=== PATIENT | male | born 1955 | race Native Hawaiian/Other Pacific Islander ===

== ENCOUNTER 2016-12-12 08:13 | Outpatient (CLI) | payer OTHER ==
[~2016-12-12 08:13] MED LIST: BAYER ASA325 M1 PO; HYDR25TA60 PO; LISI5TAB10 PO; METF500T PO; PREVACID30 M1 PO; SIMV40TA57 PO; STOOL SOFTNR100 M1 PO; TAMS0.4C PO; TIZA4TAB5 PO; TURMERIC500 M1 PO; VESICARE10 MG PO
[2016-12-12] MEDS ORDERED: HYDR25TA60 PO (09:38)
[2016-12-12] MEDS ORDERED: ALAVERT10 M2 PO (09:39)
[2016-12-12] MEDS ORDERED: GLIP10TA55 PO (09:39)
== END 2016-12-12 08:22 | disposition short-term general hospital (02) ==
LOC: AMB 08:13
DX: R50.9 Fever, unspecified (principal); R53.81 Other malaise; G82.20 Paraplegia, unspecified
CPT/HCPCS: A0425; A0427

== ENCOUNTER → 2017-11-27 21:25 | Outpatient (CLI) | payer OTHER ==
[~2017-11-27 21:25] MED LIST changes: +ALAVERT10 M2 PO; +FORTAMET1000 MG PO; +GLIP10TA55 PO; +LISI20TA11 PO; +SIMV10TA PO
== END | disposition short-term general hospital (02) ==
LOC: AMB 21:25
DX: I95.89 Other hypotension (principal); E66.8 Other obesity
CPT/HCPCS: A0425; A0429

== ENCOUNTER 2017-11-27 21:41 | Emergency (ER) | payer OTHER ==
[~2017-11-27] VITALS: Ht 182.9 cm; Wt 113.4 kg
[~2017-11-27 21:41] MED LIST changes: -FORTAMET1000 MG PO; -LISI20TA11 PO; -SIMV10TA PO
[2017-11-27] MEDS ORDERED: FORTAMET1000 MG PO (21:56)
[2017-11-27] MEDS ORDERED: TAMS0.4C PO (21:58)
[2017-11-27] MEDS ORDERED: SIMV10TA PO (21:59)
[2017-11-27] MEDS ORDERED: LISI20TA11 PO (22:00)
[2017-11-27] MEDS ORDERED: GLIP10TA55 PO (22:01)
[2017-11-27 22:24] LABS: PLATELET COUNT 190 K/uL (142-355)
[2017-11-27 22:34] LABS: POTASSIUM 4.1 mmol/L (3.6-5.2)
[2017-11-27 23:35] VITALS: BP 121/63; TEMP 98.1
== END 2017-11-27 23:37 | disposition home or self-care (01) ==
LOC: ED 21:41
PROC: 0T9B70Z Drainage of Bladder with Drainage Device, Via Natural or Artificial Opening (ICD-10-PCS; principal; 2017-11-27)
DX: E86.0 Dehydration (principal); I95.9 Hypotension, unspecified
CPT/HCPCS: 36415; 51702; 80053; 81000; 83735; 85027; 93005; 96360; 99284

== ENCOUNTER 2021-01-31 14:15 | Emergency (ER) | payer OTHER ==
[~2021-01-31] VITALS: Ht 182.9 cm; Wt 136.1 kg
[~2021-01-31 14:15] MED LIST changes: +FORTAMET1000 MG PO; +LISI20TA11 PO; +SIMV10TA PO
[2021-01-31 14:42] VITALS: TEMP 97.6
[2021-01-31 15:52] LABS: PLATELET COUNT 97 K/uL (142-355)
[2021-01-31 15:56] LABS: POTASSIUM 3.4 mmol/L (3.6-5.2); SODIUM 133 mmol/L (136-145)
[2021-01-31 16:11] LABS: PARTIAL THROMBOPLASTIN TIME 32.8 SECONDS (24.5-33.6)
[2021-01-31 20:50] VITALS: BP 122/91
== END 2021-01-31 20:50 | disposition home or self-care (01) ==
LOC: ED 14:15
PROVIDERS: Emergency Medicine
DX: U07.1 COVID-19 (principal); J12.82 Pneumonia due to coronavirus disease 2019; G47.33 Obstructive sleep apnea (adult) (pediatric)
CPT/HCPCS: 80053; 83605; 83880; 84484; 85027; 85379; 85610; 85730; 87040; 93005; 96372; 99283; J1100

== ENCOUNTER 2021-02-01 10:52 | Outpatient (CLI) | payer OTHER ==
[~2021-02-01] VITALS: Ht 182.9 cm; Wt 133.8 kg
== END 2021-02-01 19:32 | disposition home or self-care (01) ==
LOC: INF 10:52
PROVIDERS: ATTEND Internal Medicine
DX: Z23 Encounter for immunization (principal); U07.1 COVID-19
CPT/HCPCS: 96365; M0244

== ENCOUNTER 2021-04-26 15:17 | Emergency (ER) | payer OTHER ==
[~2021-04-26] VITALS: Ht 182.9 cm; Wt 122.5 kg
[2021-04-26 15:34] VITALS: BP 140/72; TEMP 97.3
[2021-04-26 16:06] LABS: PLATELET COUNT 164 K/uL (142-355)
[2021-04-26 16:10] LABS: POTASSIUM 3.5 mmol/L (3.6-5.2)
== END 2021-04-26 16:50 | disposition home or self-care (01) ==
LOC: ED 15:17
PROVIDERS: Hospitalist
PROC: 0T9B70Z Drainage of Bladder with Drainage Device, Via Natural or Artificial Opening (ICD-10-PCS; principal; 2021-04-26)
DX: N39.0 Urinary tract infection, site not specified (principal)
CPT/HCPCS: 51702; 80048; 81000; 85027; 87077; 87086; 87088; 87185; 87186; 96372; 99283; J0696

== ENCOUNTER 2021-04-28 12:52 | Emergency (ER) | payer OTHER ==
[~2021-04-28] VITALS: Ht 182.9 cm; Wt 122.5 kg
[2021-04-28 12:59] VITALS: BP 154/79; TEMP 97.2
== END 2021-04-28 15:35 | disposition home or self-care (01) ==
LOC: ED 12:52
DX: T83.031A Leakage of indwelling urethral catheter, initial encounter (principal); Y84.6 Urinary catheterization as the cause of abnormal reaction of the patient, or of later complication, without mention of misadventure at the time of the procedure; Y92.89 Other specified places as the place of occurrence of the external cause
CPT/HCPCS: 99282

== ENCOUNTER 2021-11-25 10:18 | Emergency (ER) | payer OTHER ==
[~2021-11-25] VITALS: Ht 182.9 cm; Wt 122.5 kg
[2021-11-25 10:42] VITALS: BP 161/68; TEMP 98
== END 2021-11-25 12:15 | disposition home or self-care (01) ==
LOC: ED 10:18
DX: L25.9 Unspecified contact dermatitis, unspecified cause (principal)
CPT/HCPCS: 99282

== ENCOUNTER 2022-05-25 22:04 | Emergency (ER) | payer OTHER ==
[~2022-05-25] VITALS: Ht 182.9 cm; Wt 120.2 kg
[2022-05-25 23:22] LABS: POTASSIUM 4.6 mmol/L (3.6-5.2)
[2022-05-25 23:23] LABS: PLATELET COUNT 170 K/uL (142-355)
[2022-05-25 23:36] LABS: PARTIAL THROMBOPLASTIN TIME 29.4 SECONDS (24.5-33.6)
[2022-05-26 05:40] VITALS: BP 94/54; TEMP 99.1
== END 2022-05-26 05:40 | disposition short-term general hospital (02) ==
LOC: ED 22:04
PROVIDERS: Emergency Medicine
PROC: 0T9B70Z Drainage of Bladder with Drainage Device, Via Natural or Artificial Opening (ICD-10-PCS; principal; 2022-05-25)
DX: S37.012A Minor contusion of left kidney, initial encounter (principal); Z11.52 Encounter for screening for COVID-19; X58.XXXA Exposure to other specified factors, initial encounter; Y92.89 Other specified places as the place of occurrence of the external cause
CPT/HCPCS: 36415; 51702; 80053; 81002; 83605; 83690; 84484; 85027; 85610; 85730; 87040; 87077; 87186; 87205; 87502; 87635; 87651; 93005; 96360; 96361; 96374; 96375; 99284; J2270; J2405; J3490; Q9963; U0003